=== PATIENT | female | born 1965 | race Caucasian/White ===

== ENCOUNTER 2022-09-04 10:48 | Emergency (ER) | payer BC, SELFPAY ==
[2022-09-04 11:42] VITALS: BMI 29.3
[2022-09-04 11:45] VITALS: BP 180/76; PULSE 76; RESP 19; TEMP 36.4; O2SAT 98
[2022-09-04 11:45] LABS: Basophils % 0.3 %; Eosinophils # 0.2 10^3/uL (0.0-0.8); Eosinophils % 2.6 %; Hematocrit 37.1 % (37.0-47.0); Hemoglobin 12.1 g/dL (11.5-15.3); Lymphocytes % 15.9 %; Mean Corpuscular HGB Conc 32.6 g/dL (30.0-36.0); Mean Corpuscular Hemoglobin 29.4 pg (28.0-34.0); Mean Corpuscular Volume 90.3 fl (81-99); Mean Platelet Volume 11.3 fL (7.4-10.4); Monocytes # 0.6 10^3/uL (0.2-0.9); Neutrophils # 4.33 10^3/uL (1.8-7.7); Neutrophils % 70.9 %; Nucleated Red Blood Cells % 0 %; Platelet Count 148 10^3/cmm (130-400); Red Blood Count 4.11 10^6/uL (4.1-5.3); Red Cell Distribution Width 12.4 % (12.1-15.1); White Blood Count 6.1 10^3/uL (4.0-10.0)
[2022-09-04 12:10] LABS: Alanine Aminotransferase 20 U/L (0-33); Albumin Level 3.9 g/dL (3.5-5.2); Alkaline Phosphatase 152 U/L (35-105); Anion Gap 16.1 (5-19); Aspartate Amino Transferase 20 U/L (0-32); Blood Urea Nitrogen 28 mg/dL (6-20); Calcium 9.2 mg/dL (8.5-10.5); Carbon Dioxide 21 mmol/L (22-29); Chloride 108 mmol/L (98-107); Globulin 3.4 g/dL (1.3-4.6); Glomerular Filtration Rate 57.1 mL/min (90-130); Glucose 98 mg/dL (65-115); Lactic Sepsis W/Reflex 1.1 mmol/L (0.5-2.2); Lipase 136 U/L (13-60); Osmolality Calculated 297 mOsm/kg (285-295); Potassium 4.1 mmol/L (3.5-5.1); Sodium 141 mmol/L (136-145); Total Bilirubin 0.3 mg/dL (0.15-1.2); Total Protein 7.3 g/dL (6.6-8.7)
--- NOTE | 2022-09-04 12:13 | CTR_ITS ---
PROCEDURE INFORMATION: Exam: CT Abdomen And Pelvis With Contrast Exam date and time: 09/04/2022 1:07 PM Age: 57 years old Clinical indication: Left lower quadrant abdominal pain. Prior cholecystectomy and partial hysterectomy, ovarian cyst, pancreatic stent and neurostimulator placement. TECHNIQUE: Imaging protocol: Computed tomography of the abdomen and pelvis with contrast. Radiation optimization: All CT scans at this facility use at least one of these dose optimization techniques: automated exposure control; mA and/or kV adjustment per patient size (includes targeted exams where dose is matched to clinical indication); or iterative reconstruction. Contrast material: OMNI 350; Contrast volume: 100 ml; Contrast route: INTRAVENOUS (IV); Other protocol: This patient has received 0 known CTs and 0 known cardiac nuclear medicine studies in the 12 months prior to the current study. COMPARISON: No relevant prior studies available. RADIATION DOSE METRICS: Total DLP (mGy-cm): 626.36 FINDINGS: Tubes, catheters and devices: A neurostimulator is noted with lead in the spine. Heart: Calcified granuloma at the left base. No pericardial effusion. No hiatal hernia. Liver: Liver is enlarged measuring 18.5 cm. Probable hepatic steatosis. Gallbladder and bile ducts: The gallbladder has been removed. Pancreas: The pancreas is unremarkable. Spleen: The spleen is unremarkable. Adrenal glands: The adrenal glands are unremarkable. Kidneys and ureters: There is enhancement of the wall of the left renal pelvis and proximal left ureter. This could reflect early pyelonephritis/ascending infection. Early urothelial malignancy is considered less likely. Correlate with urinalysis. Subcentimeter renal hypodensities are too small to accurately characterize and require no follow-up. Stomach and bowel: The stomach and small bowel are unremarkable. There is mild stranding adjacent to a sigmoid diverticulum (series 6, image 70) suspicious for early/mild acute diverticulitis. No perforation. No abscess. Appendix: The appendix is not identified. Intraperitoneal space: No free intraperitoneal air is seen. Vasculature: No abdominal aortic aneurysm. Lymph nodes: A periportal lymph node measures 1.0 x 1.2 cm. Urinary bladder: The bladder wall is mildly prominent which may reflect cystitis. Correlate with urinalysis. Reproductive: Status post hysterectomy. Bones/joints: No acute fracture is seen. CT/CT abdomen pelvis w con* [id number] IMPRESSION: 1. Findings suspicious for early/mild acute sigmoid diverticulitis. No perforation. No abscess. 2. There is enhancement of the wall of the left renal pelvis and proximal left ureter. This could reflect early pyelonephritis/ascending infection. Early urothelial malignancy is considered less likely. The bladder wall is mildly prominent which may reflect cystitis. Correlate with urinalysis. Consider nonemergent CT urogram to further assess. 3. Hepatomegaly with probable hepatic steatosis and mild periportal lymphadenopathy. COMMENTS: Consistent with the [employer]'s Incidental Findings Committee white paper (J Am Ana Cristina Radiol 2018): Any incidental renal lesion less than 1 cm or classified as too small to characterize, or any incidental cystic renal lesion characterized as simple-appearing, is likely benign. No follow-up imaging is recommended for these lesions per consensus recommendations based on imaging criteria.
--- NOTE | 2022-09-04 12:15 | W.ED.ABDPA2 ---
HPI - Abdominal Pain General: Chief Complaint: Abdominal Pain Stated Complaint: Lower left abd pain Time Seen by Provider: 09/04/22 11:47 History of Present Illness: Patient is a 57-year-old female who presents to the ER for evaluation of left lower quadrant abdominal pain. She started having some mild pain last night which is worsened today. She denies any fevers or chills. No nausea vomiting or diarrhea. No change in bowel habits. No urinary discomfort. Associated Symptoms: Denies fever(s), nausea and vomiting Review of Systems Const: Denies: fever(s) or malaise Card: Denies: chest pain Resp: Denies: dyspnea GI: Reports: abdominal pain; Denies: nausea or vomiting Skin/Breast: Denies: rash PFSH ED PFSH: Social History (Updated 11/07/20 @ 14:15 by Reji Henry LPN) Smoking and tobacco status: never smoked Second hand smoke exposure: No Alcohol intake: never Desire information about alcohol rehabilitation?: No Physical Exam Const: COMMON NORMALS: no acute distress, alert and well nourished GENERAL APPEARANCE: cooperative; not in distress HENMT: COMMON NORMALS: normocephalic and atraumatic HEAD & SCALP: normocephalic and atraumatic Eye: COMMON NORMALS: EOMs intact bilaterally Chest: COMMONS NORMALS: normal inspection of the chest Resp: COMMON NORMALS: normal respiratory effort, No retractions and No use of accessory muscles Cardio: COMMON NORMALS: Peripheral pulses 2+ throughout PERIPHERAL PULSES: Peripheral pulses 2+ throughout GI: COMMON NORMALS: Soft to palpation PALPATION: Yes Soft to palpation OTHER: Abdomen is soft and nondistended. There is focal tenderness to palpation the left lower quadrant with some guarding. Extremity: COMMON NORMALS: normal to inspection and full ROM Neuro: COMMON NORMALS: no focal motor deficits SENSORIUM/ORIENTATION: Yes alert Skin: COMMON NORMALS: no rashes or lesions noted GENERAL SKIN EXAM: no rashes or lesions noted Course ED course: Buttocks.Patient given 1 L normal saline, 4 mg of morphine, and [address] scan of the abdomen pelvis shows some mild sigmoid diverticulitis. She will be treated with Augmentin and discharged with pain medicine and antibiotics. Vital Signs: Vital signs: Vital Signs Temperature 97.6 F 09/04/22 11:45 Pulse Rate 80 09/04/22 13:30 Respiratory Rate 16 09/04/22 13:30 Blood Pressure 151/71 09/04/22 13:30 Pulse Oximetry 100 09/04/22 13:30 Oxygen Delivery Me thod 09/04/22 13:30 MDM - Abdominal Pain Medical Decision Making Nontoxic 57-year-old female who presents to the ER for evaluation of left lower quadrant abdominal pain. She does have focal tenderness in the left lower quadrant. Her laboratory work-up is normal. No leukocytosis, electrolyte abnormalities, or urine tract infection. I independently reviewed her labs including her CBC, CMP, and urinalysis. CT scan scan of the abdomen and pelvis shows some faint sigmoid diverticulitis. Radiology also notes some mild thickening of the urothelium and suggest outpatient CT urogram. I have updated the patient on her CT scan findings including need for outpatient CT urogram. I recommended she follow-up with her PCP regarding getting this scheduled. I will treat her with Augmentin, hydrocodone, and Zofran. I have provided her strict return precautions for developing fevers, worsening pain, persistent vomiting, or any other concerns. Differential Diagnosis Likely abdominal pain, acute appendicitis, calculus of kidney, constipation, diverticulitis, endometriosis, gastroenteritis, pancreatitis and small bowel obstruction Lab Data 09/04/22 11:38 09/04/22 11:38 Labs/Radiology: Radiology Impressions Abdomen/Pelvis CT 09/04/22 12:13 IMPRESSION: 1. Findings suspicious for early/mild acute sigmoid diverticulitis. No perforation. No abscess. 2. There is enhancement of the wall of the left renal pelvis and proximal left ureter. This could reflect early pyelonephritis/ascending infection. Early urothelial malignancy is considered less likely. The bladder wall is mildly prominent which may reflect cystitis. Correlate with urinalysis. Consider nonemergent CT urogram to further assess. 3. Hepatomegaly with probable hepatic steatosis and mild periportal lymphadenopathy. COMMENTS: Consistent with the [employer]'s Incidental Findings Committee white paper (J Am Ana Cristina Radiol 2018): Any incidental renal lesion less than 1 cm or classified as too small to characterize, or any incidental cystic renal lesion characterized as simple-appearing, is likely benign. No follow-up imaging is recommended for these lesions per consensus recommendations based on imaging criteria. ADDENDUM: 09/04/22 9470 Findings discussed with LANA NÚÑEZ at 09/04/2022 1:38 PM CHEMICAL ENGINEERING TECHNICIAN. Laboratory Results WBC 6.1 10^3/uL (4.0-10.0) 09/04/22 11:38 RBC 4.11 10^6/uL (4.1-5.3) 09/04/22 11:38 Hgb 12.1 g/dL (11.5-15.3) 09/04/22 11:38 Hct 37.1 % (37.0-47.0) 09/04/22 11:38 MCV 90.3 fl (81-99) 09/04/22 11:38 MCH 29.4 pg (28.0-34.0) 09/04/22 11:38 MCHC 32.6 g/dL (30.0-36.0) 09/04/22 11:38 RDW 12.4 % (12.1-15.1) 09/04/22 11:38 Plt Count 148 10^3/cmm (130-400) 09/04/22 11:38 MPV 11.3 fL (7.4-10.4) H 09/04/22 11:38 Neut % (Auto) 70.9 % 09/04/22 11:38 Lymph % (Auto) 15.9 % 09/04/22 11:38 Josephine % (Auto) 10.0 % 09/04/22 11:38 Eos % (Auto) 2.6 % 09/04/22 11:38 Baso % (Auto) 0.3 % 09/04/22 11:38 Neut # (Auto) 4.33 10^3/uL (1.8-7.7) 09/04/22 11:38 Lymph # (Auto) 1.0 10^3/uL (0.8-4.8) 09/04/22 11:38 Josephine # (Auto) 0.6 10^3/uL (0.2-0.9) 09/04/22 11:38 Eos # (Auto) 0.2 10^3/uL (0.0-0.8) 09/04/22 11:38 Baso # (Auto) 0.0 10^3/uL (0.0-0.1) 09/04/22 11:38 Nucleated RBC % (auto) 0 % 09/04/22 11:38 Nucleated RBCs # 0.0 /100WBC 09/04/22 11:38 Sodium 141 mmol/L (136-145) 09/04/22 11:38 Potassium 4.1 mmol/L (3.5-5.1) 09/04/22 11:38 Chloride 108 mmol/L (98-107) H 09/04/22 11:38 Carbon Dioxide 21 mmol/L (22-29) L 09/04/22 11:38 Anion Gap 16.1 (5-19) 09/04/22 11:38 BUN 28 mg/dL (6-20) H 09/04/22 11:38 Creatinine 1.0 mg/dL (0.5-0.9) H 09/04/22 11:38 GFR Calculation 57.1 mL/min (90-130) L 09/04/22 11:38 Glucose 98 mg/dL (65-115) 09/04/22 11:38 Calculated Osmolality 297 mOsm/kg (285-295) H 09/04/22 11:38 Lactic Acid 1.1 mmol/L (0.5-2.2) 09/04/22 11:38 Calcium 9.2 mg/dL (8.5-10.5) 09/04/22 11:38 Total Bilirubin 0.3 mg/dL (0.15-1.2) 09/04/22 11:38 AST 20 U/L (0-32) 09/04/22 11:38 ALT 20 U/L (0-33) 09/04/22 11:38 Alkaline Phosphatase 152 U/L (35-105) H 09/04/22 11:38 Total Protein 7.3 g/dL (6.6-8.7) 09/04/22 11:38 Albumin 3.9 g/dL (3.5-5.2) 09/04/22 11:38 Globulin 3.4 g/dL (1.3-4.6) 09/04/22 11:38 Lipase 136 U/L (13-60) H 09/04/22 11:38 Urine Color Yellow (Yellow) 09/04/22 12:33 Urine Appearance Clear (CLEAR) 09/04/22 12:33 Urine pH 5 (5-7) 09/04/22 12:33 Ur Specific [place] 1.020 (1.005-1.030) 09/04/22 12:33 Urine Protein Neg (Negative) 09/04/22 12:33 Urine Glucose (UA) Norm (Normal) 09/04/22 12:33 Urine Ketones Negative (Negative) 09/04/22 12:33 Urine Blood Neg (Negative) 09/04/22 12:33 Urine Nitrate Negative (Negative) 09/04/22 12:33 Urine Bilirubin Neg (Negative) 09/04/22 12:33 Urine Urobilinogen Norm mg/dL (Negative) 09/04/22 12:33 Ur Leukocyte Esterase Negative (Negative) 09/04/22 12:33 Discharge Plan Discharge Patient Disposition: Home Clinical Impression: Diverticulitis Condition: Stable Prescriptions: New hydrocodone-acetaminophen 5-325 mg tablet 1 tab PO Q8H PRN (Reason: pain) Qty: 10 0RF ondansetron 4 mg tablet,disintegrating 4 mg PO Q8H PRN (Reason: nausea and vomiting) 4 Days Qty: 7 0RF amoxicillin-pot clavulanate 875-125 mg tablet 1 tab PO BID Qty: 20 0RF No Action lisinopril 5 mg tablet 5 mg PO DAILY leflunomide 20 mg tablet 20 mg PO DAILY furosemide 40 mg tablet 40 mg PO DAILY topiramate 25 mg capsule,sprinkle,ER 24hr 25 mg PO DAILY dicyclomine 10 mg capsule 10 mg PO QID potassium chloride 10 mEq capsule, extended release 10 meq PO DAILY aspirin [Adult Aspirin Regimen] 81 mg tablet,delayed release (DR/EC) 81 mg PO DAILY atorvastatin 10 mg tablet 10 mg PO DAILY folic acid 1 mg tablet 1 mg PO DAILY Discharge Orders: Discharge ED (Routine); Ordered 09/04/22 Ordered By: Lana Núñez Referrals: Bee Schaefer PA-C [Primary Care Provider] - Discharge Diet: Advance as tolerated Discharge Activity: Increase activity as tolerated Patient Instructions: Opioid Safety, Pain Management Activity Restrictions/Additional Instructions: Take all medication as directed. Follow-up with your primary care provider for reassessment next week. You should discuss your CT scan findings from today with your PCP and discuss getting a CT urogram to evaluate your ureters. There was some questionable thickening of the ureters identified on your CT scan today that needs follow-up. Return to the ER for fevers, increasing pain, weakness, or any other concerns. Coding Level of Care Code ED It Business Process Architect for Chg Fwd
[2022-09-04 12:45] VITALS: PULSE 82; RESP 22; O2SAT 100
[2022-09-04 12:57] VITALS: RESP 19; O2SAT 100
[2022-09-04] MEDS: morphine 4 mg/mL SDV 1 mL IVP (12:57)
[2022-09-04] MEDS: ondansetron 2 mg/ML SDV 2 mL 4 MG IVP (12:57)
[2022-09-04] MEDS: sodium chloride 0.9% 1,000 ML 999 ML IV (13:02)
[2022-09-04] MEDS: iohexol 350 mg/mL 500 mL Btl (per mL) IV (13:12)
[2022-09-04 13:26] LABS: Add Urine Microscopic? NO; Charge for UA Resulting for Rev
[2022-09-04 13:30] VITALS: BP 151/71; PULSE 80; RESP 16; O2SAT 100
[2022-09-04 13:31] LABS: Bilirubin Urine Neg (Negative); Blood Urine Neg (Negative); Glucose Urine UA Norm (Normal); Ketones Urine Negative (Negative); Leukocyte Esterase Urine Negative (Negative); Nitrate Urine Negative (Negative); Protein Urine Neg (Negative); Urine Appearance Clear (CLEAR); Urine Color Yellow (Yellow); Urobilinogen Urine Norm (Negative); pH Urine 5 (5-7)
[2022-09-04 14:23] VITALS: PULSE 81; O2SAT 100
== END 2022-09-04 14:25 | disposition home or self-care (01) ==
PROVIDERS: Physician Assistant; Emergency Provider Student in an Organized Health Care Education/Training Program; PCP Physician Assistant
DX: K57.92 Diverticulitis of intestine, part unspecified, without perforation or abscess without bleeding (principal); Z79.82 Long term (current) use of aspirin
CPT/HCPCS: 12345; 36415; 74177; 80053; 81000; 81003; 83605; 83690; 85025; 96361; 96374; 96375; 99285; J2270; J2405; J7030; Q9967